=== PATIENT | female | born 1930 | race African-American/Black ===

== ENCOUNTER 2018-08-13 12:20 | Inpatient (IN) | payer MEDICARE, BC ==
[~2018-08-13] VITALS: Ht 165.1 cm; Wt 69.9 kg
[2018-08-13] MEDS ORDERED: ATEN-42 PO (12:24)
[2018-08-13] MEDS ORDERED: SODIUM CHLORIDE 0.9% 1000ML BAG (SEPSIS BOLUS) IV ONE (13:00)
[2018-08-13 14:39] LABS: HEMATOCRIT. 35.8 % (36.0-48.0); HEMOGLOBIN. 11.7 g/dL (12.0-16.0); MEAN CORPUSCULAR HEMOGLOBIN 31.4 pg (28.0-32.0); MEAN CORPUSCULAR VOLUME 96.3 fL (81.0-99.0); MEAN PLATELET VOLUME 8.2 fl (7.4-10.4); PLATELET 227 x1000/uL (130-400); RED BLOOD CELL COUNT 3.72 mill/uL (4.2-5.4); RED CELL DISTRIBUTION WIDTH 14.2 % (11.6-14.6)
[2018-08-13 14:44] LABS: INR 1.1; PROTHROMBIN TIME 10.9 sec (9.1-11.1)
[2018-08-13 14:45] LABS: CHLORIDE 111 mEq/L (98-107)
[2018-08-13 15:21] LABS: PLATELET ESTIMATE NORMAL
[2018-08-13 15:45] LABS: CLARITY URINE CLOUDY (CLEAR); COLOR URINE YELLOW (YELLOW); KETONES URINE NEGATIVE (NEGATIVE); LEUKOCYTE ESTERASE URINE 3+ (NEGATIVE); NITRITE URINE NEGATIVE (NEGATIVE); OCCULT BLOOD URINE 1+ (NEGATIVE); PH URINE 7.5 (4.5-8.0); PROTEIN URINE NEGATIVE (NEGATIVE); SPECIFIC GRAVITY URINE 1.004 (1.005-1.030); UROBILINOGEN URINE 0.2 E.U./dL (0.2-1.0)
[2018-08-13] MEDS ORDERED: CEFTRIAXONE 1 G PREMIX 50 ML IV ONE (16:15)
[2018-08-13] MEDS ORDERED: IPRATROPIUM/ALBUTEROL 0.5-3(2.5)MG/3ML NEB INH PRN (20:00)
[2018-08-13] MEDS ORDERED: ACETAMINOPHEN 325MG TABLET PO PRN (20:00)
[2018-08-13] MEDS ORDERED: ACETAMINOPHEN 650MG/20.3ML UDC GT PRN (20:00)
[2018-08-13] MEDS ORDERED: GUAIFENESIN 200MG/10ML SUGAR FREE UDC PO PRN (20:00)
[2018-08-13] MEDS ORDERED: DOCUSATE SODIUM 100MG CAPSULE PO PRN (20:00)
[2018-08-13] MEDS ORDERED: MAGNESIUM/ALUMINUM HYDROXIDE/SIMETHICONE 30ML UDC PO PRN (20:00)
[2018-08-13] MEDS ORDERED: CEFTRIAXONE 1 G PREMIX 50 ML IV SCH (20:00)
[2018-08-13] MEDS ORDERED: DIPHENHYDRAMINE 50MG/ML VIAL IV PRN (20:00)
[2018-08-13] MEDS ORDERED: NA PHOS,M-B/NA PHOS,DI-BA ENEMA 118ML PR PRN (20:00)
[2018-08-13] MEDS ORDERED: CLONIDINE 0.1MG TABLET PO PRN (20:00)
[2018-08-13] MEDS ORDERED: ONDANSETRON HCL 4MG/2ML INJ IV PRN (20:00)
[2018-08-13] MEDS ORDERED: ACETAMINOPHEN 650MG SUPP PR PRN (20:00)
[2018-08-13 20:50] VITALS: BP 144/43
[2018-08-13 22:35] LABS: CREATINE KINASE MB FRACTION 1.2 ng/mL (0.5-3.6)
[2018-08-13] MEDS: SODIUM CHLORIDE 0.45% 1,000 ML IV SCH (23:01)
[2018-08-13] MEDS: SODIUM CHLORIDE 0.9% INJ 3ML FLUSH IVF SCH (23:01)
[2018-08-14] VITALS (7 sets, daily range): BP systolic 118–154; BP diastolic 39–70
[2018-08-14] MEDS: SODIUM CHLORIDE 0.9% INJ 3ML FLUSH IVF SCH ×3 (06:34→20:38)
[2018-08-14 07:05] LABS: CHLORIDE 109 mEq/L (98-107)
[2018-08-14 07:25] LABS: BASOPHILS % 0.2 % (0.0-2.0); EOSINOPHILS % 0.2 % (0.0-5.0); HEMATOCRIT. 30.1 % (36.0-48.0); HEMOGLOBIN. 10.1 g/dL (12.0-16.0); LYMPHOCYTES % 14.2 % (20.0-50.0); MEAN CORPUSCULAR HEMOGLOBIN 31.6 pg (28.0-32.0); MEAN CORPUSCULAR VOLUME 94.8 fL (81.0-99.0); MEAN PLATELET VOLUME 8.7 fl (7.4-10.4); MONOCYTES % 9.3 % (2.0-8.0); NEUTROPHILS % 76.1 % (40.0-76.0); PLATELET 206 x1000/uL (130-400); RED BLOOD CELL COUNT 3.18 mill/uL (4.2-5.4); RED CELL DISTRIBUTION WIDTH 14.2 % (11.6-14.6)
[2018-08-14 07:31] LABS: LDL CHOLESTEROL 64 mg/dL (5-100)
[2018-08-14 07:33] LABS: CREATINE KINASE 30 IU/L (26-192); HDL CHOLESTEROL 49 mg/dL (40-59)
[2018-08-14 07:36] LABS: CREATINE KINASE MB FRACTION < 1.0 ng/mL (0.5-3.6)
[2018-08-14] MEDS: ENOXAPARIN 40MG/0.4ML SYR SUBCUT SCH (09:54)
[2018-08-14 11:37] LABS: *AMPHETAMINES SCREEN URINE NEGATIVE (NEGATIVE)
[2018-08-14 11:38] LABS: *BARBITURATES SCREEN URINE NEGATIVE (NEGATIVE); *BENZODIAZEPINES SCREEN URINE NEGATIVE (NEGATIVE); *COCAINE SCREEN URINE NEGATIVE (NEGATIVE); METHADONE URINE SCREEN NEGATIVE (NEGATIVE); OPIATES URINE SCREEN NEGATIVE (NEGATIVE); PHENCYCLIDINE URINE SCREEN NEGATIVE (NEGATIVE)
[2018-08-14 11:39] LABS: CANNABINOID URINE SCREEN NEGATIVE (NEGATIVE)
[2018-08-14] MEDS: SODIUM CHLORIDE 0.45% 1,000 ML IV SCH (13:13)
[2018-08-14] MEDS ORDERED: CEFTRIAXONE 1,000 MG in DEXTROSE 5% WATER 50 ML IV SCH (16:00)
[2018-08-15 00:05] VITALS: BP 133/69
[2018-08-15 04:00] VITALS: BP 143/71
[2018-08-15] MEDS: SODIUM CHLORIDE 0.9% INJ 3ML FLUSH IVF SCH (05:14)
[2018-08-15 07:57] VITALS: BP 125/62
[2018-08-15] MEDS: ENOXAPARIN 40MG/0.4ML SYR SUBCUT SCH (09:34)
[2018-08-15] MEDS: SODIUM CHLORIDE 0.45% 1,000 ML IV SCH (09:35)
[2018-08-15] MEDS ORDERED: LEVO500T2 PO (10:46)
[2018-08-15 12:31] VITALS: BP 126/62
[2018-08-15 13:36] LABS: BASOPHILS % 0.3 % (0.0-2.0); EOSINOPHILS % 0.3 % (0.0-5.0); HEMATOCRIT. 38.6 % (36.0-48.0); HEMOGLOBIN. 12.7 g/dL (12.0-16.0); LYMPHOCYTES % 32.7 % (20.0-50.0); MEAN CORPUSCULAR HEMOGLOBIN 31.6 pg (28.0-32.0); MEAN CORPUSCULAR VOLUME 96.1 fL (81.0-99.0); MEAN PLATELET VOLUME 8.7 fl (7.4-10.4); MONOCYTES % 8.5 % (2.0-8.0); NEUTROPHILS % 58.2 % (40.0-76.0); PLATELET 243 x1000/uL (130-400); RED BLOOD CELL COUNT 4.02 mill/uL (4.2-5.4); RED CELL DISTRIBUTION WIDTH 14.2 % (11.6-14.6)
[2018-08-15 13:42] LABS: CHLORIDE 106 mEq/L (98-107)
== END 2018-08-15 13:35 | disposition home or self-care (01) | DRG 871 ==
LOC: ER 12:47 → 7WST 16:35 → EDBEDREQSVC 16:38 → EDBEDREQ 16:38 → ENRESERV 20:05
PROVIDERS: ADMIT Family Medicine; ATTEND Family Medicine
DX: A41.9 Sepsis, unspecified organism (principal); E43 Unspecified severe protein-calorie malnutrition; G93.41 Metabolic encephalopathy; N39.0 Urinary tract infection, site not specified; E87.1 Hypo-osmolality and hyponatremia; F03.90 Unspecified dementia, unspecified severity, without behavioral disturbance, psychotic disturbance, mood disturbance, and anxiety; E87.6 Hypokalemia; I10 Essential (primary) hypertension; E86.0 Dehydration; D63.8 Anemia in other chronic diseases classified elsewhere; Z68.25 Body mass index [BMI] 25.0-25.9, adult
CPT/HCPCS: 36415; 71045; 80061; 80305; 82550; 82553; 83605; 84145; 84484; 93005; 96365; 96372; 97162; 99285; J0696; J1650; J7030; J7060